=== PATIENT | male | born 1935 | race Caucasian/White ===

== ENCOUNTER 2017-02-25 11:16 | Emergency (ER) | payer MEDICARE, OTHER ==
[~2017-02-25] VITALS: Ht 180.3 cm; Wt 92.1 kg
--- NOTE | 2017-02-25 12:48 | ED Back Pain ---
General Chief Complaint: Back Problems Stated Complaint: BACK PAIN Nursing Triage Note: PT CO OF UPPER BACK PAIN FOR A FEW DAYS, AND HAS HAD COUGH Nursing Sepsis Screen: No Definite Risk Source of Information: Patient, Family Exam Limitations: No Limitations History of Present Illness Time Seen by Provider: 12:48 Initial Comments 82-year-old male patient presents to the emergency department with complaints of left upper back pain for several days. Patient was seen at urgent care in [place] approximately a week ago for cough and upper respiratory infection. Patient was instructed to use [id number] guaifenesin. Patient reports upper respiratory symptoms have improved, but continues to have muscle spasms of the left upper back. Location: Paraspinous Muscles (left upper back) Timing/Duration: 3-4 Days Pain/Injury Location: Back (left upper back) Radiation: Other (denies radiation) Method of Injury: Unknown (denies known injury) Modifying Factors: Worse With Movement, Worse With Other (worse with palpation) Associated Symptoms: muscle spasms, No fever, No weakness, No numbness in legs/ feet, No tingling in legs/feet, No sensory/motor loss, No lower back pain, No loss of bladder control, No loss of bowel control, No other (denies numbness of the genitals) Allergies and Home Medications Allergies Coded Allergies: No Known Drug Allergies (Unverified , 02/25/17) Home Medications Chlorzoxazone 500 Mg Tablet, 500 MG PO TID PRN for SPASMS, #14 Ref 0 Prescribed by: SINCERE PULLIAM on 02/25/17 1349 Hydrocodone/Acetaminophen 1 Each Tablet, 0.5-1 EACH PO Q6H PRN for PAIN, #14 Ref 0 Prescribed by: SINCERE PULLIAM on 02/25/17 1349 Prednisone 20 Mg Tab, 20 MG PO BID, #10 Ref 0 Prescribed by: SINCERE PULLIAM on 02/25/17 1349 Constitutional: No chills, No diaphoresis, No dizziness, No fever, No malaise, No weakness EENTM: no symptoms reported Respiratory: see HPI, cough (only mild residual cough), No dyspnea on exertion (patient has chronic dyspnea on exertion due to COPD, but states similar to usual symptoms.), No hemoptysis, No orthopnea, No short of breath (patient has chronic shortness of breath due to COPD, but states similar to usual symptoms.) , No wheezing Cardiovascular: No chest pain, No edema, No palpitations, No syncope Gastrointestinal: No abdominal pain, No constipation, No diarrhea, No loss of appetite, No nausea, No vomiting Genitourinary: No decreased output, No dysuria, No frequency, No hematuria, No incontinence, No pain Musculoskeletal: see HPI, back pain, No joint pain, muscle cramps (left upper back muscle spasms), No neck pain Skin: No change in color, No lesions, No rash Psychiatric/Neurological: Denies Headache, Denies Numbness, Denies Paresthesia , Denies Tingling, Denies Weakness All Other Systems Reviewed Negative Unless Noted: Yes (Negative excepted noted.) Past Bzdlbah-Ztnwmx-Vbdgih Hx Patient Social History Alcohol Use: Denies Use Recreational Drug Use: No Smoking Status: Never a Smoker Recent Foreign Travel: No Contact w/Someone Who Travel: No Recent Infectious Disease Expo: No Recent Hopitalizations: No Seasonal Allergies Seasonal Allergies: Yes Surgeries HX Surgeries: Yes (hernia repair) Surgeries: CABG Respiratory Hx Respiratory Disorders: Yes Respiratory Disorders: COPD Cardiovascular Hx Cardiac Disorders: Yes Cardiac Disorders: Coronary Artery Disease, Hypertension Neurological Hx Neurological Disorders: No Genitourinary Hx Genitourinary Disorders: Yes Genitourinary Disorders: Prostate Problems Gastrointestinal Hx Gastrointestinal Disorders: No Musculoskeletal Hx Musculoskeletal Disorders: No Reviewed Nursing Assessment Reviewed/Agree w Nursing PMH: Yes Family Medical History Significant Family History: No Pertinent Family Hx Physical Exam Vital Signs Vital Sign - Last 12Hours 02/25/17 11:20 Temp 97.6 Pulse 71 Resp 18 B/P (MAP) 115/57 Pulse Ox 95 Capillary Refill : Less Than 3 Seconds General Appearance: No Apparent Distress, WD/WN HEENT: PERRL/EOMI, Pharynx Normal Neck: Full Range of Motion, Normal Inspection, Non Tender, Supple Cardiovascular: Regular Rate, Rhythm, No Edema, No Murmur, Normal Peripheral Pulses Respiratory: Lungs Clear, Normal Breath Sounds, No Accessory Muscle Use, No Respiratory Distress Peripheral Pulses: 2+ Dorsalis Pedis (R), 2+ Left Dors-Pedis (L), 2+ Radial Pulses (R), 2+ Radial Pulses (L) Gastrointestinal: Normal Bowel Sounds, Non Tender, Soft, No Distended Back: Normal Inspection, No CVA Tenderness, No Vertebral Tenderness, No Decreased Range of Motion, Muscle Spasm (left upper back (see images)), Other ( tenderness to palpation left upper back just medial to the tip of the scapula ( see images)) Extremity: Normal Capillary Refill, Normal Inspection, Normal Range of Motion, Non Tender Neurologic/Psychiatric: Alert, Oriented x3, No Motor/Sensory Deficits, Normal Mood/Affect Skin: Normal Color, Warm/Dry, No Rash Progress/Results/Core Measures Results/Orders My Orders Orders - SINCERE PULLIAM Ketorolac Injection (Toradol Injection) (02/25/17 13:05) Orphenadrine Injection (Norflex Injectio (02/25/17 13:05) Hydrocodone/Apap 7.5/325 Tab (Lortab 7. (02/25/17 14:17) Vital Signs/I&O Vital Sign - Last 12Hours 02/25/17 02/25/17 11:20 14:28 Temp 97.6 Pulse 71 71 Resp 18 18 B/P (MAP) 115/57 Pulse Ox 95 99 Blood Pressure Mean: 76 Departure Communication Progress Notes patient reports improvement in symptoms with medications. pain is now a 10. plan for dsch to home after 1 dose of lortab prior to dsch. Impression Impression: Primary Impression: Rhomboid muscle strain Qualified Codes: S29.012A - Strain of muscle and tendon of back wall of thorax , initial encounter Disposition: 01 HOME, SELF-CARE Condition: Improved Departure-Patient Inst. Decision time for Depature: 13:43 Referrals: RADHA GALEANA MD (PCP) Primary Care Physician GUERDA MARKHAM MD Patient Instructions: Muscle Strain (DC) Add. Discharge Instructions: All discharge instructions reviewed with patient and/or family. Voiced understanding. Medications as instructed. Continue usual home medications. Ibuprofen [id number] as directed for pain. Ice packs or heating pads as needed for pain. Follow-up with Dr. Conde as an outpatient for recheck. Return to the emergency department for worsened pain, numbness, weakness, bowel incontinence, bladder incontinence, numbness of the genital area, chest pain, shortness of air, vomiting, inability to urinate, blood in the urine, or any other concerns. Scripts Hydrocodone/Acetaminophen (Hydrocodon -Acetaminophen 5-325) 1 Each Tablet 0.5-1 EACH PO Q6H Y for PAIN, #14 TAB 0 Refills Prov: SINCERE PULLIAM 02/25/17 Chlorzoxazone (Chlorzoxazone) 500 Mg Tablet 500 MG PO TID Y for SPASMS, #14 TAB 0 Refills Prov: SINCERE PULLIAM 02/25/17 Prednisone (Prednisone) 20 Mg Tab 20 MG PO BID, #10 TAB 0 Refills Prov: SINCERE PULLIAM 02/25/17 Work/School Note: Local Medical Staff Listing Images Full Body/Extremities Full 1 - Muscle Spams, Tenderness SINCERE PULLIAM February 25, 2017 12:48
[2017-02-25] MEDS ORDERED: ORPHENADRINE 60 MG/2 ML (NORFLEX) AMP IM STA (13:05)
[2017-02-25] MEDS ORDERED: KETOROLAC 60 MG/2 ML VIAL IM STA (13:05)
[2017-02-25] MEDS ORDERED: CHLO500T4 PO (13:49)
[2017-02-25] MEDS ORDERED: PRD20T PO (13:49)
[2017-02-25] MEDS ORDERED: HYDR-3812 PO (13:49)
[2017-02-25] MEDS ORDERED: HYDROcodone/APAP 7.5 MG/325 MG (LORTAB, LORCET PLUS) TABLET PO STA (14:17)
[2017-02-25 14:28] VITALS: BP 112/65
== END 2017-02-25 14:28 | disposition home or self-care (01) ==
LOC: EDUNIT# 11:16 → ER 11:18
DX: S29.012A Strain of muscle and tendon of back wall of thorax, initial encounter (principal); I10 Essential (primary) hypertension; I25.10 Atherosclerotic heart disease of native coronary artery without angina pectoris; J44.9 Chronic obstructive pulmonary disease, unspecified; X50.0XXA Overexertion from strenuous movement or load, initial encounter; Y92.009 Unspecified place in unspecified non-institutional (private) residence as the place of occurrence of the external cause; Y99.8 Other external cause status
CPT/HCPCS: 99281